=== PATIENT | female | born 1985 | race Caucasian/White ===

== ENCOUNTER 2016-06-15 16:02 | Emergency (ER) | payer OTHER ==
[~2016-06-15] VITALS: Ht 149.9 cm; Wt 47.6 kg
[2016-06-15] MEDS ORDERED: DOXY25TA50 PO (16:24)
--- NOTE | 2016-06-15 17:11 | NUR ---
PT WAS D/C TO HOME AFTER DR MONREAL EVALUATION. D/C INSTRUCTIONS GIVEN TO THE PT.
[2016-06-15 17:13] VITALS: BP 124/68
== END 2016-06-15 17:17 | disposition home or self-care (01) ==
LOC: ER 16:02
DX: K40.90 Unilateral inguinal hernia, without obstruction or gangrene, not specified as recurrent (principal); D64.9 Anemia, unspecified
CPT/HCPCS: 99281; A4663